=== PATIENT | female | born 1985 | race Caucasian/White ===

== ENCOUNTER 2017-12-16 16:55 | Emergency (ER) | payer OTHER ==
[2017-12-16] MEDS ORDERED: IBUPROFEN 800 MG TABLET PO STA (17:52)
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
[2017-12-16 18:07] VITALS: BP 114/84
== END 2017-12-16 18:08 | disposition home or self-care (01) ==
LOC: ED 16:55
DX: M62.838 Other muscle spasm (principal); V43.62XA Car passenger injured in collision with other type car in traffic accident, initial encounter
CPT/HCPCS: 99283; A9270